=== PATIENT | male | born 1990 | race Caucasian/White ===

== ENCOUNTER 2020-03-30 13:23 | Outpatient (CLI) | payer BC ==
--- NOTE | 2020-03-30 15:04 | CT ---
CT HEAD WITHOUT CONTRAST: INDICATION: Followup subdural hematoma. FINDINGS: Comparison is made to MRI of brain dated 03/20/[address] head dated 02/22/2017. MRI brain of 03/20/2020 reveals a left subdural hematoma over the left convexity involving left fronta l and parietal lobes. Minimal extension over the left occipital lobe. FINDINGS: Small residual left subdural hematoma is again noted. Small area of high density over the left front al lobe measures 5 mm today. This is seen inferiorly. There continues to be some small residual mix ed density subdural over the left frontal convexity extending superiorly. No significant residual phan bdural collection is seen over the parietal or occipital lobes today. Ventricles are normal size and position. No midline shift or mass effect. No intraparenchymal mass, hemorrhage, or infarct. Paranasal sinuses appear clear. Mastoid air cells are clear. IMPRESSION: Small residual left subdural hematoma over the left frontal convexity. Area of dense subdural anteri or inferior left frontal lobe measuring 5 mm. Mixed density subdural projecting superiorly over the frontal convexity with thickness measuring in the 3 mm range more superiorly. POS: AH
== END 2020-03-30 13:24 | disposition home or self-care (01) ==
LOC: SCSCT 13:23
PROVIDERS: ATTEND Neurological Surgery
DX: I62.03 Nontraumatic chronic subdural hemorrhage (principal)
CPT/HCPCS: 70450